=== PATIENT | female | born 1975 | race Caucasian/White ===

== ENCOUNTER → 2017-01-22 | Outpatient (CLI) | payer OTHER ==
[~2017-01-22] MED LIST: ACTIVELLA 1.0-1 EACH PO; ADVAIR 250/501 DISK IH; BENADRYL25 MG PO; CHEWABLE MULTI1 EACH PO; CLARITIN10 MG PO; DEXILANT60 MG PO; NASONEX17 GM NS; PEPCID20 MG PO; PRILOSEC40 MG PO; PROAIR HFA8.5 GM IH; SINGULAIR10 MG PO
== END | disposition home or self-care (01) ==
LOC: EKG 12-25 11:00
DX: I05.1 Rheumatic mitral insufficiency (principal); I07.1 Rheumatic tricuspid insufficiency; I27.2 Other secondary pulmonary hypertension
CPT/HCPCS: 93017; 93306